=== PATIENT | male | born 2000 | race Caucasian/White ===

== ENCOUNTER → 2021-10-03 | Outpatient (REF) ==
--- NOTE | 2021-10-03 16:21 | REP ---
INDICATION: PAIN. COMPARISON: None. TECHNIQUE: Four views each wrist FINDINGS: Bilateral: No acute fracture or destructive osseous lesion. IMPRESSION: Within normal limits bilateral. <Electronically signed by Aaron Lou > 10/03/21 0549
== END ==
LOC: M PLAIMG 14:14
PROVIDERS: ATTEND Internal Medicine
DX: Z00.00 Encounter for general adult medical examination without abnormal findings (principal)